=== PATIENT | female | born 1990 | race Caucasian/White ===

== ENCOUNTER 2019-02-12 05:37 | Day surgery (SDC) | payer BC, MEDICAID ==
[2019-02-12] MEDS ORDERED: KETOROLAC 30 MG/ML VIAL IVP ONE (05:38)
[2019-02-12] MEDS ORDERED: DEXAMETHASONE 4 MG/ML 1ML VIAL IVP ONE (05:38)
[2019-02-12] MEDS ORDERED: SEVOFLURANE 250 ML INH ONE (05:38)
[2019-02-12] MEDS ORDERED: LIDOCAINE 2% MDV (20MG/ML) 20ML VIAL IV ONE (05:38)
[2019-02-12] MEDS ORDERED: PROPOFOL 10 MG/ML VIAL IV ONE (05:38)
[2019-02-12] MEDS ORDERED: FENTANYL PF 100MCG/2ML VIAL IV ONE (05:38)
[2019-02-12] MEDS ORDERED: ONDANSETRON HCL IV 4 MG/2 ML VIAL IVP ONE (05:38)
[2019-02-12] MEDS ORDERED: MIDAZOLAM HCL 2MG/2ML VIAL IV ONE (05:38)
[2019-02-12] MEDS ORDERED: CEFAZOLIN 2 Gram 2 GM/50 ML BAG IVPB ONE (06:00)
[2019-02-12] MEDS ORDERED: ACETAMINOPHEN 1,000 MG/100 ML BTL IVPB ONE (06:00)
[2019-02-12] MEDS ORDERED: RINGERS SOLUTION,LACTATED 1,000 ML IV ONE ×2 (07:32→09:07)
[2019-02-12] MEDS ORDERED: BUPIVACAINE 0.25% MPF 30ML VIAL SQ ONE ×2 (08:18→11:03)
[2019-02-12] MEDS ORDERED: BUPIVACAINE LIPOSOME 266MG/20ML VIAL SQ ONE ×2 (08:18→11:03)
[2019-02-12] MEDS ORDERED: ONDANSETRON HCL IV 4 MG/2 ML VIAL IM ONE (12:13)
--- NOTE | 2019-02-12 13:21 | Operative Note ---
DATE OF SURGERY: 02/12/2019 SURGEON: Oli Thomas D.P.M. 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 OPERATION: 1. MENDOZA CALCANEAL OSTEOTOMY WITH INTERNAL SCREW FIXATION RIGHT. 2. BROSTROM ANKLE LIGAMENT REPAIR RIGHT WITH INSERTION OF ARTHREX INTERNAL BRACE RIGHT. INDICATIONS FOR PROCEDURE: The patient has pes cavus right with calcaneal varus and ankle instability contributing to ankle pain and recurrent ankle sprains requiring surgical intervention. Condition not responsive to extensive ongoing conservative care and all previous MRI's negative for neurologic issues. ANESTHESIA: General with postoperative block. X-ray indicates pes cavus with calcaneal varus. PROCEDURE: The patient was brought into the Operating Room Suite. General anesthesia was instituted. The patient was put onto their left side, padding put on right calf, and pneumatic cuff placed. The foot, ankle and leg were prepped and draped in the usual sterile manner. The foot, ankle, and leg were exsanguinated with an Esmarch and the tourniquet was raised to 250 mmHg. C-arm utilized to outline the incision which was made in a curvilinear fashion approximately 6 cm in length parallel to the peroneal tendons centered over the body of the calcaneus laterally. Sharp and blunt dissection was utilized to deepen the incision. All vital structures are identified and retracted throughout the procedure. Serial nerve identified and retracted gently throughout the procedure as well. Dissection was taken down to the periosteum which was incised and reflected with an elevator and the Mendoza osteotomy was performed in typical fashion in a laterally wedge based fashion. A wedge of bone was removed without difficulty, medial hinge maintained, and osteotomy closed without difficulty. Excellent [id number] contact noted with reduction of varus deformity. C-arm indicated good opposition to osteotomy with good nuhy-ee-cmtr contact and osteotomy incorrect position. The medial structures are not invaded with the saw. Two wires from the Osteomed sat within driven under C-arm guidance through stab incisions to the posterior plantar aspect of the right heel perpendicular to the osteotomy. C-arm indicated appropriate position of the wires which were parallel and did not invade the subtalar joint and were within the calcaneal body. Proximal cortices drilled. Depth gauge indicated one wire was 38 mm, the other wire was 40 mm. Therefore, one 38 mm x 5.5 mm headless cannulated Osteomed screw was driven in typical cannulated fashion. One 40 mm x 5.5 mm headless cannulated Osteomed screws were driven in typical cannulated fashion. C-arm indicated screw head buried, excellent [id number]-[id number] contact osteotomy. No acute fractures. Screws are across the osteotomy perpendicular to the osteotomy and are the appropriate length. Wires removed, wound flushed with copious amounts of sterile saline. The periosteum was closed in simple interrupted fashion with 3-0 Vicryl, the subcu. was closed in simple interrupted fashion with 3-0 Vicryl, skin closed in subcuticular continuous fashion with 5-0 PDS reinforced with 3-0 nylon in simple interrupted fashion. Stab incisions to heel, closed in simple interrupted fashion with 3-0 nylon. Attention was then directed to the lateral ankle. C-arm was utilized to outline the incision which was made curvilinear along the anterior border of the distal right fibula and the incision was approximately 4 cm in length. Sharp and blunt dissection were used to deepen the incision. All vital structures are identified and retracted without difficulty. Previous to the incision landmarks were made under C-arm guidance. Blunt dissection was utilized to deep the incision through the subcu level. Extensor retinacula noted, isolated and cut. The ankle capsule is isolated and cut along the anterior and distal border of the fibula which was reflected. Thinning of the anterior calcaneofibular ligament was noted. Cartilage appeared to be healthy. Two holes were drilled for the Brostrom fiber anchors made by [employer], drills made, fiber nets inserted without difficulty. These were driven from anterior to distal fashion through the distal fibula approximately 2 cm apart. Blunt dissection was utilized to isolate the non-cartilaginous aspect of the neck of the talus laterally just distal to where the anterior talofibular ligament attaches. A K-wire was then utilized as a guide which was driven from a distal lateral to proximal medial fashion within the neck anterior to the articular cartilage of the talar dome guided towards the medial malleolus under C-arm guidance. C-arm indicated that the wire was directly within the talus and not invading the sinus tarsi. The talar portion of the anchor was then drilled after the temporary wire was removed. A 4.75 mm biocomposite anchor was driven into the talus with the Arthrex system without difficulty. This was done through a stab incision through the capsule. The foot was dorsiflexed and everted and the Brostrom suture anchors from the fiber knots were tied down in typical fashion with the foot in an everted dorsiflexed position. Previous to this the fibular portion of the internal brace was drilled and a 3.5 mm Biocomposite anchor was put in place in typical [employer] fashion. After the Brostrom procedure was performed the fibular portion of the Arth[employer] internal bridge was inserted without difficulty under appropriate tension. The foot was maintained in neutral position while this was performed. Fiber tape cut from the internal bridge. Excellent resolution of the instability noted with minimal anterior dorsi noted. The residual capsule and the extensor retinaculum was then reapproximated in simple interrupted fashion with the 1.3 mm suture tape, needles cut, subcu closed in simple interrupted fashion with 3-0 Vicryl, skin close in subcuticular continuous fashion with 5-0 PDS reinforced in simple interrupted fashion with 3- 0 nylon. A postoperative block was given proximally including a tibial nerve medially with a total of 40 ml of Exparel 1.3% mixed with Marcaine 0.25% and a 50/50 mixture, approximately 30 ml was given laterally medially to the tibial nerve was 1% Lidocaine plain and 0.25% Marcaine plain, 10 ml total. At two hours the tourniquet was deflated to 0 mmHg. No active pumping bleeders noted. The tourniquet was left deflated for approximately 20-30 minutes and then reinflated for closure. A combination of sterile Adaptic, 4x4's, 4-inch Bj and Moises wrap were applied. Tourniquet deflated to 0 mmHg. Hyperemic flesh noted not foot, ankle and toes. Patient tolerated the procedure well and was transferred to the Recovery Room in stable condition without complaint. She is to be non-weight bearing with cam boot crutches and/or rollabout. Keep extremity elevated, take pain medication as prescribed, keep dressing clean, dry and intact and contact me by cell phone as needed. She is to follow-up in the office in the next several days. The internal brace fiber tape was 2.0 mm fiber tape. JOB NUMBER: [id number] [facility]
== END 2019-02-12 12:50 | disposition home or self-care (01) ==
LOC: SUR 05:37
PROVIDERS: ATTEND Podiatrist
DX: Q66.71 Congenital pes cavus, right foot (principal); M21.171 Varus deformity, not elsewhere classified, right ankle; M25.371 Other instability, right ankle; G31.84 Mild cognitive impairment of uncertain or unknown etiology
CPT/HCPCS: 28300; 27698; 01470; 84703; C1713 ×4; C1769; J1885; J2405; J3010; J0690; C9290; J7120